=== PATIENT | female | born 1940 | race American Indian/Alaskan Native ===

== ENCOUNTER 2018-06-04 08:39 | Observation (INO) | payer OTHER ==
[~2018-06-04 08:39] MED LIST: ANCEF/STERILE WATER 2 GM/20 ML IV NR
[2018-06-04] MEDS ORDERED: LACTATED RINGERS 1,000 ML IV SCH (10:00)
[2018-06-04] MEDS ORDERED: D50W (25GM) Syringe IV ONE ×2 (10:11→12:00)
[2018-06-04] MEDS ORDERED: ZEMURON IV ONE (10:29)
[2018-06-04] MEDS ORDERED: SUBLIMAZE ONE ×2 (10:30→13:34)
[2018-06-04] MEDS ORDERED: DIPRIVAN 10 MG/ML IV ONE ×2 (10:30→13:25)
[2018-06-04] MEDS ORDERED: XYLOCAINE MPF 2% ONE (10:30)
[2018-06-04] MEDS ORDERED: MARCAINE-EPI/PF 0.25%-1:200,000 INFILTRATI ONE (11:21)
[2018-06-04] MEDS ORDERED: NACL 0.9% IR ONE (12:10)
[2018-06-04] MEDS ORDERED: MARCAINE-EPI 0.5%-1:200,000 INFILTRATI ONE (12:10)
--- NOTE | 2018-06-04 12:55 | Anesthesia Consultation ---
Anesthesia Consult and Med Hx Date of service: 06/04/18 - Airway Anesthetic Teeth Evaluation: Good ROM Head & Neck: Adequate Mental/Hyoid Distance: Adequate Mallampati Class: Class III Intubation Access Assessment: Possibly Difficult - Pulmonary Exam CTA: Yes - Cardiac Exam Cardiac Exam: RRR - Pre-Operative Health Status ASA Pre-Surgery Classification: ASA3 Proposed Anesthetic Plan: General - Pulmonary Hx Asthma: Yes (no recent inhaler use) - Cardiovascular System Hx Hypertension: Yes Hx Heart Attack/AMI: No Hx Percutaneous Transluminal Coronary Angioplasty (PTCA): No - Central Nervous System Hx Seizures: No CVA: No Hx Back Pain: Yes (CHRONIC) Hx Psychiatric Problems: Yes - Endocrine Hx Renal Disease: No Hx Liver Disease: No Hx Non-Insulin Dependent Diabetes: Yes Hx Thyroid Disease: No - Other Systems Hx Alcohol Use: No Hx Substance Use: No Hx Cancer: No Hx Obesity: Yes
--- NOTE | 2018-06-04 12:55 | Anesthesia Day of Surgery ---
Anesthesia Day of Surgery - Day of Surgery Patient Examined: Yes Patient H&P Reviewed: Yes Beta Blockers: Yes
[2018-06-04] MEDS ORDERED: ROBINUL ONE (12:56)
[2018-06-04] MEDS ORDERED: BLOXIVERZ ONE (12:56)
[2018-06-04] MEDS ORDERED: MARCAINE-EPI 0.25%-1:200,000 INFILTRATI ONE (13:14)
[2018-06-04] MEDS ORDERED: NACL 0.9% 1000 ML 1,000 ML ONE (13:42)
[2018-06-04] MEDS ORDERED: DILAUDID ONE (13:45)
--- NOTE | 2018-06-04 14:05 | Operative Report ---
Operative Report Operative Report: [Date of procedure: 06/04/2018 Pre-operative diagnosis: Incarcerated incisional hernia 3 Post-operative diagnosis: Same Procedure name(s): Laparoscopic incarcerated incisional hernia repair with mesh Surgeon: Nikole Johnson MD Restaurant Operations Manager: None Anesthesia: General, 0.25% Marcaine EBL: Minimal Complications: None Instrument Count: Correct Indications: This is a 78 -year-old patient presents with a incarcerated incisional hernia that is now causing symptoms. The patient was offered the above-named procedures possible treatment modality. The risks and benefits discussed until all questions were answered. The patient was subsequent brought to the OR. Findings: Incarcerated [place] cheese type incisional hernia Procedure: The patient was placed supine on the table. We reviewed the informed consent. After adequate anesthesia. Patient was prepped and draped in the usual sterile fashion. A 5 mm incision was made in the right quadrant. Using Optiview technique we placed a 5 mm port at this position. The abdomen was then insufflated to 15 mm mercury. We introduced the camera and examined the abdomen. We began examining the defect. At this time we placed a 5 mm right lower quadrant port under direct vision and after infiltration of local anesthetic. A 10 mm left upper quadrant port was also placed. There was significant intra-abdominal adhesions with incarcerated contents in the hernia. Using a Harmonic scalpel I slowly reduced the contents of the hernias until they were free and clear. Using a suture passer and a #1 PDS suture, I approximated the fascial edges in an interrupted fashion. We then decreased the intra-abdominal pressure. We then chose a 6 x 8" proceed mesh with two 2-0 Vicryl transfascial stitches located at 12 and 6:00. This was introduced into the abdomen through the 10 mm port. We used a suture passer to center the mesh over the middle of the defect. We then secured the edges of the mesh using a pro-tack device. A double crown technique was used to place the tacks. We had good coverage of the hernia defect. We then evacuated the insufflation. Removed all ports and closed all port sites using a 4-0 Monocryl in a subcuticular fashion. The patient tolerated the procedure well. The patient was awakened, extubated, and transferred to PACU in no apparent distress.]
--- NOTE | 2018-06-04 14:09 | Short Stay Summary ---
Short Stay Documentation Date of service: 06/04/18 - History H&P: obtained from office - Allergies and Medications Current Medications: Allergies Iodine and Iodide Containing Produc Adverse Reaction (Verified 06/03/18 12:11) Nausea and Vomiting Bath Nut Allergy (Uncoded 06/03/18 12:11) Angioedema Home Medications Medication Instructions Recorded Confirmed Last Taken Type ALPRAZolam [Xanax TAB] 1 mg PO DAILY PRN 06/03/18 06/04/18 06/04/18 01:00 History Benazepril HCl [Lotensin] 40 mg PO DAILY 06/03/18 06/04/18 06/03/18 16:00 History Insulin NPH Human Isophane 0 unit SQ QHS 06/03/18 06/04/18 06/03/18 21:30 History [HumuLIN N] dilTIAZem HCl [Diltiazem HCl] 120 mg PO BID 06/03/18 06/04/18 06/03/18 21:00 History glipiZIDE [Glucotrol] 10 mg PO BID 06/03/18 06/04/18 06/03/18 21:00 History hydrALAZINE [Apresoline] 25 mg PO Q8HR 06/03/18 06/04/18 06/04/18 07:00 History metFORMIN [Glucophage] 500 mg PO BID 06/03/18 06/04/18 06/03/18 21:00 History Active Medications Cefazolin Sodium (Ancef/Sterile Water 2 Gm/20 Ml) 2 gm IV PREOP NR Stop: 06/04/18 23:59 Hydromorphone HCl (Dilaudid) 0.5 mg IV Q10MIN PRN PRN Reason: Pain , Severe (7-10) Stop: 06/05/18 06:54 Lactated Ringer's (Lactated Ringers) 1,000 mls @ 75 mls/hr IV DIRECT RODRIGO Last Admin: 06/04/18 09:50 Dose: 75 mls/hr Documented by: - Brief post op/procedure progress note Pre-op diagnosis: please refer to operative note Estimated blood loss: none Pathology: none Condition: stable - Disposition Condition at discharge: Stable Disposition: DC-01 TO HOME OR SELFCARE Short Stay Discharge Plan Diet: regular Wound: remove dressing (in 2 days afterwards replaced the abdominal binder) Follow up with: PAULINE LUNDBERG MD [Primary Care Provider] - 7 Days JEN CALVILLO MD [Staff Physician] - 7 Days Prescriptions: Ketorolac [Toradol] 10 mg PO Q6H PRN #12 tablet PRN Reason: Pain oxyCODONE /ACETAMINOPHEN [Percocet 5/325] 1 tab PO Q6HR PRN #30 tablet PRN Reason: Pain
[2018-06-04] MEDS: DILAUDID IV PRN ×3 (15:35→20:30)
--- NOTE | 2018-06-04 16:05 | Post Anesthesia Evaluation ---
- Post Anesthesia Evaluation Patient Participated: Yes Airway Patent: Yes Stable Respiratory Function: Yes Temp > 96.8F: Yes Pain Manageable: Yes Adequeate Hydration: Yes Anesthesia Complications: No
[2018-06-04] MEDS ORDERED: PROVENTIL IH ONE (17:00)
[2018-06-04] MEDS ORDERED: TORADOL IV ONE (18:30)
[2018-06-04] MEDS ORDERED: HumuLIN R IV ONE (18:34)
[2018-06-04] MEDS ORDERED: HumuLIN R ONE (18:43)
[2018-06-04] MEDS ORDERED: SODIUM CHLORIDE FLUSH SYRINGE 10 ML IV PRN (19:00)
[2018-06-04] MEDS ORDERED: TYLENOL PO PRN (19:00)
[2018-06-04] MEDS ORDERED: ZOFRAN IV PRN (19:00)
--- NOTE | 2018-06-04 19:00 | History and Physical Report ---
History of Present Illness Date of examination: 06/04/18 Date of admission: 06/04/18 18:24 Chief complaint: Persistent low oxygen saturations after surgery. History of present illness: Patient had Incarcerated incisional hernia for which patient had Laparoscopic incarcerated incisional hernia repair with mesh. Postop patient has been very hypoxic. Her oxygen saturations were in the low 80s. No wheezing. Patient has a history of asthma/COPD. Not active. Patient is doing well on oxygen 2 L to 3 L. Patient is supposed to be discharged same day after surgery but the discharge was held up because of persistent hypoxia. No precipitating factors. Has history of asthma but not a smoker. No fever or chills. Improved slightly after 1 hour postop surgery. Hence is being admitted for safety issues. Past History Past Medical History: COPD, diabetes, hypertension, hyperlipidemia, other (asthma) Past Surgical History: Other (incisional hernia surgical repair) Social history: no significant social history, lives with family, full code Family history: hypertension Medications and Allergies Allergies Allergy/AdvReac Type Severity Reaction Status Date / Time Iodine and Iodide Containing AdvReac Nausea and Verified 06/03/18 12:11 Produc Vomiting Avalon Nut Allergy Angioedema Uncoded 06/03/18 12:11 Home Medications Medication Instructions Recorded Confirmed Last Taken Type ALPRAZolam [Xanax TAB] 1 mg PO DAILY PRN 06/03/18 06/04/18 06/04/18 01:00 History Benazepril HCl [Lotensin] 40 mg PO DAILY 06/03/18 06/04/18 06/03/18 16:00 History Insulin NPH Human Isophane 0 unit SQ QHS 06/03/18 06/04/18 06/03/18 21:30 History [HumuLIN N] dilTIAZem HCl [Diltiazem HCl] 120 mg PO BID 06/03/18 06/04/18 06/03/18 21:00 History glipiZIDE [Glucotrol] 10 mg PO BID 06/03/18 06/04/18 06/03/18 21:00 History hydrALAZINE [Apresoline TAB] 25 mg PO Q8HR 06/03/18 06/04/18 06/04/18 07:00 History metFORMIN [Glucophage] 500 mg PO BID 06/03/18 06/04/18 06/03/18 21:00 History Ketorolac [Toradol] 10 mg PO Q6H PRN #12 tablet 06/04/18 Unknown Rx oxyCODONE /ACETAMINOPHEN [Percocet 1 tab PO Q6HR PRN #30 tablet 06/04/18 Unknown Rx 5/325] Active Meds: Active Medications Cefazolin Sodium (Ancef/Sterile Water 2 Gm/20 Ml) 2 gm IV PREOP NR Stop: 06/04/18 23:59 Hydromorphone HCl (Dilaudid) 0.5 mg IV Q10MIN PRN PRN Reason: Pain , Severe (7-10) Stop: 06/05/18 06:54 Last Admin: 06/04/18 16:06 Dose: 0.5 mg Documented by: Lactated Ringer's (Lactated Ringers) 1,000 mls @ 75 mls/hr IV DIRECT RODRIGO Last Admin: 06/04/18 09:50 Dose: 75 mls/hr Documented by: Oxycodone/Acetaminophen (Percocet 5/325) 1 tab PO Q6H PRN PRN Reason: Pain, Moderate (4-6) Review of Systems All systems: negative Constitutional: no weight loss, no weight gain, no fever, no chills Ears, nose, mouth and throat: no hoarseness, no sore throat, no swelling in mouth, no swelling in throat Breasts: deferred Cardiovascular: no chest pain, no orthopnea, no palpitations, no rapid/irregular heart beat, no edema, no syncope, no lightheadedness, no shortness of breath Respiratory: no cough, no cough with sputum, no excessive sputum, no hemoptysis, no shortness of breath, no dyspnea on exertion, no congestion, no wheezing Gastrointestinal: no abdominal pain, no nausea, no vomiting, no diarrhea Genitourinary Female: no dysuria, no urinary frequency, no urgency Menstruation: ammenorrhea Musculoskeletal: no neck stiffness, no neck pain, no shooting arm pain, no arm numbness/tingling Integumentary: no rash, no pruritis, no redness, no sores, no wounds, no jaundice, no boils, no blisters Neurological: no seizures, no syncope Psychiatric: no anxiety, no memory loss, no change in sleep habits, no sleep disturbances, no insomnia, no hypersomnia, no change in appetite, no change in libido, no suicidal ideation, no disorientation, no hallucinations Endocrine: no cold intolerance, no heat intolerance, no polyphagia, no excessive thirst, no polydipsia, no polyuria, no nocturia, no excessive sweating, no flushing, no weight change Hematologic/Lymphatic: no easy bruising, no easy bleeding Allergic/Immunologic: no urticaria, no allergic rhinitis, no wheezing Exam - Constitutional Vitals: Temp Pulse Resp BP Pulse Ox 97.4 F L 71 13 131/76 99 06/04/18 18:00 06/04/18 18:00 06/04/18 18:00 06/04/18 18:00 06/04/18 18:00 General appearance: Present: no acute distress, well-nourished - EENT Eyes: Present: PERRL ENT: hearing intact, clear oral mucosa - Neck Neck: Present: supple, normal ROM - Respiratory Respiratory effort: normal Respiratory: bilateral: CTA - Cardiovascular Heart rate: 84 Rhythm: regular Heart Sounds: Present: S1 & S2. Absent: rub, click - Extremities Extremities: no ischemia, pulses intact, pulses symmetrical, No edema Peripheral Pulses: within normal limits - Abdominal General gastrointestinal: Present: soft, non-tender, non-distended, normal bowel sounds Female genitourinary: Present: normal - Rectal Rectal Exam: deferred - Integumentary Integumentary: Present: clear, warm, dry - Musculoskeletal Musculoskeletal: gait normal, strength equal bilaterally - Psychiatric Psychiatric: appropriate mood/affect, intact judgment & insight - Neurologic Neurologic: CNII-XII intact, moves all extremities - Allied Health Allied health notes reviewed: nursing, case management Results - Labs Labs: Laboratory Last Values POC Glucose 175 (70-105) H 06/04/18 14:53 Assessment and Plan Advance Directives: Yes (full code) VTE prophylaxis?: Chemical Plan of care discussed with patient/family: Yes - Patient Problems (1) Acute respiratory failure with hypoxia Current Visit: Yes Status: Acute Plan to address problem: Patient admitted for observation with oxygen 2-3 L and give nebs [id number]. No antibiotics were started and low-dose Solu-Medrol started (2) Asthma Current Visit: Yes Status: Inactive Qualifiers: Asthma severity: mild Plan to address problem: As Y inactive Albuterol nebulizer solution Q4h when necessary (3) Hypertension Current Visit: Yes Status: Chronic Qualifiers: Hypertension type: essential hypertension Qualified Code(s): I10 - Essential (primary) hypertension Plan to address problem: Continue antihypertensives (4) T2DM (type 2 diabetes mellitus) Current Visit: Yes Status: Chronic Qualifiers: Diabetes mellitus fci insulin use: without fci use Plan to address problem: Continue coverage with Humalog and moderate dose sliding scale protocol (5) DVT prophylaxis Current Visit: Yes Status: Acute Plan to address problem: Continue SCDs and Lovenox and GI prophylaxis
[2018-06-04] MEDS ORDERED: DUONEB *Not for PRN Use IH (19:02)
[2018-06-04] MEDS ORDERED: PROVENTIL IH PRN (19:02)
[2018-06-04] MEDS ORDERED: XANAX PO PRN (19:03)
[2018-06-04] MEDS ORDERED: NON-FORMULARY (Benazepril Hcl [Lotensin] 40 MG) PO SCH (19:15)
[2018-06-04 20:16] LABS: Hematocrit 36.9 % (30.3-42.9); Hemoglobin 12.5 gm/dl (10.1-14.3); Mean Corpuscular HGB Conc 34 % (30-34); Mean Corpuscular Volume 87 fl (79-97); Platelet Count 469 K/mm3 (140-440); Red Blood Count 4.24 M/mm3 (3.65-5.03); Red Cell Distribution Width 13.6 % (13.2-15.2)
[2018-06-04 20:45] LABS: Alanine Aminotransferase 9 units/L (7-56); Albumin 3.7 g/dL (3.9-5); BUN/Creatinine Ratio 32; Blood Urea Nitrogen 16 mg/dL (7-17); Calcium 9.2 mg/dL (8.4-10.2); Hemolysis Index 7
[2018-06-04] MEDS: NACL 0.9% 1000 ML 1,000 ML IV SCH (20:45)
[2018-06-04 21:01] LABS: Anisocytosis 1+; Basophils % (Manual) 0 % (0.0-1.8); Eosinophils % (Manual) 0 % (0.0-4.3); Poikilocytosis Few; Total Cells Counted 100
--- NOTE | 2018-06-04 21:22 | XRay Report ---
FINAL REPORT EXAM: XR CHEST 1V AP HISTORY: hypoxia TECHNIQUE: AP portable view of the chest. PRIORS: None. FINDINGS: The cardiomediastinal silhouette appears normal. The lungs are hypo aerated and the lung bases are no t well evaluated. There is increased opacity in the left lung base most likely representing an airspa ce infiltrate and pleural effusion. The visualized right lung field appears clear. The bones and soft tissues are unremarkable. IMPRESSION: Left basilar opacity most consistent with pneumonia and pleural effusion Hypo aerated lungs
[2018-06-04] MEDS: PEPCID IV SCH (21:36)
[2018-06-04] MEDS: CARDIZEM PO SCH (21:37)
[2018-06-04] MEDS: APRESOLINE PO SCH (21:37)
[2018-06-04] MEDS: ZESTRIL PO SCH (21:37)
[2018-06-04] MEDS: HumaLOG SUB-Q SCH (21:38)
[2018-06-04] MEDS: SODIUM CHLORIDE FLUSH SYRINGE 10 ML IV SCH (21:44)
[2018-06-04] MEDS ORDERED: DILTIAZEM HCL 120 MG PO SCH (22:00)
[2018-06-05] MEDS: DILAUDID IV PRN ×2 (01:49→08:45)
[2018-06-05 05:29] LABS: Basophils % (Auto) 0.2 % (0.0-1.8); Eosinophils % (Auto) 0.1 % (0.0-4.3); Hematocrit 39.4 % (30.3-42.9); Hemoglobin 12.6 gm/dl (10.1-14.3); Lymphocytes # (Auto) 1.7 K/mm3 (1.2-5.4); Mean Corpuscular HGB Conc 32 % (30-34); Mean Corpuscular Volume 88 fl (79-97); Monocytes % (Auto) 8.1 % (0.0-7.3); Platelet Count 473 K/mm3 (140-440); Red Blood Count 4.47 M/mm3 (3.65-5.03); Red Cell Distribution Width 13.9 % (13.2-15.2)
[2018-06-05 05:56] LABS: BUN/Creatinine Ratio 26; Blood Urea Nitrogen 13 mg/dL (7-17); Calcium 8.9 mg/dL (8.4-10.2); Hemolysis Index 8
[2018-06-05] MEDS: APRESOLINE PO SCH ×2 (06:12→14:00)
[2018-06-05] MEDS: HumaLOG SUB-Q SCH ×2 (07:30→11:30)
[2018-06-05] MEDS: NACL 0.9% 1000 ML 1,000 ML IV SCH (08:44)
[2018-06-05] MEDS: PEPCID IV SCH (10:16)
[2018-06-05] MEDS: CARDIZEM PO SCH (10:16)
[2018-06-05] MEDS: ZESTRIL PO SCH (10:17)
[2018-06-05] MEDS: SODIUM CHLORIDE FLUSH SYRINGE 10 ML IV SCH (10:18)
[2018-06-05] MEDS: PERCOCET 5/325 PO PRN ×2 (10:29→16:05)
--- NOTE | 2018-06-05 11:24 | Discharge Summary ---
Providers - Providers Date of Admission: 06/04/18 18:24 Attending physician: MICHAEL BLACK MD 06/04/18 Consult to Case Management [CONS] Routine Services Needed at Discharge: Home Health Services Notified:: ADDICTION SOCIAL WORKERpatient centered care specialist physician: PAULINE LUNDBERG MD Hospitalization Reason for admission: HYPOXIA Condition: Stable Hospital course: Patient had Incarcerated incisional hernia for which patient had Laparoscopic incarcerated incisional hernia repair with mesh. Postop patient has been very hypoxic. Her oxygen saturations were in the low 80s. No wheezing. Patient has a history of asthma/COPD. Not active. Patient is doing well on oxygen 2 L to 3 L. Patient is supposed to be discharged same day after surgery but the discharge was held up because of persistent hypoxia. No precipitating factors. Has history of asthma but not a smoker. No fever or chills. Improved slightly after 1 hour postop surgery. Hence is being admitted for safety issues. Patient was monitored overnight and placed on oxygen with breathing treatment. Her symptoms improved and she was discharged. Recommended to follow with primary care doctor and also her surgeon. (1) Acute respiratory failure with hypoxia (2) Asthma (3) Hypertension (4) T2DM (type 2 diabetes mellitus) Disposition: DC-01 TO HOME OR SELFCARE Time spent for discharge: 35 MINS Core Measure Documentation - Palliative Care Palliative Care/ Comfort Measures: Not Applicable - Core Measures Any of the following diagnoses?: none Exam - Physical Exam Narrative exam: General appearance: Present: no acute distress, well-nourished - EENT Eyes: Present: PERRL ENT: hearing intact, clear oral mucosa - Neck Neck: Present: supple, normal ROM - Respiratory Respiratory effort: normal Respiratory: bilateral: CTA - Cardiovascular Heart rate: 84 Rhythm: regular Heart Sounds: Present: S1 & S2. Absent: rub, click - Extremities Extremities: no ischemia, pulses intact, pulses symmetrical, No edema Peripheral Pulses: within normal limits - Abdominal General gastrointestinal: Present: soft, tender, AT SURGICAL SITE non-distended, normal bowel sounds Female genitourinary: Present: normal - Rectal Rectal Exam: deferred - Integumentary Integumentary: Present: clear, warm, dry - Musculoskeletal Musculoskeletal: gait normal, strength equal bilaterally - Psychiatric Psychiatric: appropriate mood/affect, intact judgment & insight - Neurologic Neurologic: CNII-XII intact, moves all extremities - Allied Health Allied health notes reviewed: nursing, case management - Constitutional Vitals: Temp Pulse Resp BP Pulse Ox 98.0 F 83 18 109/47 92 06/05/18 11:20 06/05/18 11:20 06/05/18 11:20 06/05/18 11:20 06/05/18 11:20 Plan Activity: advance as tolerated, fall precautions Diet: advance as tolerated Wound: per your surgeon's advice Follow up with: JEN CALVILLO MD [Staff Physician] - 7 Days PAULINE LUNDBERG MD [Primary Care Provider] - 7 Days Forms: Outpatient Surgery DC Inst. Prescriptions: Docusate Sodium [Colace] 100 mg PO BID PRN #30 capsule PRN Reason: Constipation Ketorolac [Toradol] 10 mg PO Q6H PRN #12 tablet PRN Reason: Pain Ondansetron [Zofran Odt] 4 mg PO Q8HR #30 tab.rapdis oxyCODONE /ACETAMINOPHEN [Percocet 5/325] 1 tab PO Q6HR PRN #30 tablet PRN Reason: Pain
[2018-06-05 16:04] VITALS: BP 106/54
== END 2018-06-05 17:40 | disposition home or self-care (01) ==
LOC: OR 08:39 → INTOOBSV 18:24 → 4A 18:24
PROVIDERS: ADMIT Internal Medicine; ATTEND Internal Medicine
DX: K43.2 Incisional hernia without obstruction or gangrene (principal); J96.01 Acute respiratory failure with hypoxia; K43.0 Incisional hernia with obstruction, without gangrene; I10 Essential (primary) hypertension; E11.9 Type 2 diabetes mellitus without complications; J45.909 Unspecified asthma, uncomplicated; E78.5 Hyperlipidemia, unspecified
CPT/HCPCS: 36415; 49655; 71045; 80048; 80053; 82962; 83036; 85007; 85025; 94760; 96372; 96374; 96375; 96376; C1781; G0378; J0690; J1170; J2704; J2710; J3010; J7030; J7120; J1815

== ENCOUNTER 2018-09-23 10:30 | Outpatient (CLI) | payer OTHER ==
--- NOTE | 2018-09-23 11:07 | XRay Report ---
SACRUM AND COCCYX, 2 VIEWS HISTORY: sacrum bone pain. Mild osteopenia is suspected. The bony architecture is intact. The alignment appears normal. No significant soft tissue abnormalities are seen. IMPRESSION: Mild osteopenia. No abnormality is detected on x-ray. If further evaluation is needed CT or MRI or bone scan could be obtained.
== END 2018-09-23 10:31 | disposition home or self-care (01) ==
LOC: SPVIMAG 10:30
PROVIDERS: ATTEND Internal Medicine Hematology & Oncology
DX: M85.88 Other specified disorders of bone density and structure, other site (principal); D64.9 Anemia, unspecified; D47.3 Essential (hemorrhagic) thrombocythemia; I10 Essential (primary) hypertension; K21.9 Gastro-esophageal reflux disease without esophagitis; E66.9 Obesity, unspecified; E11.9 Type 2 diabetes mellitus without complications; J45.909 Unspecified asthma, uncomplicated
CPT/HCPCS: 72220